=== PATIENT | female | born 1985 | race Two or more races ===

== ENCOUNTER 2020-04-23 19:28 | Emergency (ER) | payer MEDICAID ==
[~2020-04-23] VITALS: Ht 167.6 cm; Wt 88.5 kg
[2020-04-23 19:42] VITALS: BP 132/72
== END 2020-04-23 19:52 | disposition home or self-care (01) ==
LOC: ER 19:28
DX: O26.892 Other specified pregnancy related conditions, second trimester (principal); K43.9 Ventral hernia without obstruction or gangrene; Z3A.14 14 weeks gestation of pregnancy

== ENCOUNTER 2020-08-25 10:01 | Emergency (ER) | payer MEDICAID ==
[~2020-08-25] VITALS: Ht 167.6 cm; Wt 93.0 kg
[2020-08-25 10:03] VITALS: BP 114/80
[2020-08-25 11:26] LABS: Basophils # (auto) 0.1 10 ^3/uL (0-0.2); Basophils % (auto) 0.8 % (0.0-2.0); Eosinophils # (auto) 0.1 10 ^3/uL (0-0.8); Eosinophils % (auto) 1.1 % (0.0-7.0); Hematocrit 36.2 % (36.0-46.0); Hemoglobin 12.4 g/dL (12.2-16.2); Lymphocytes # (auto) 1.6 10 ^3/uL (0.4-5.4); Lymphocytes % (auto) 15.9 % (10.0-50.0); Mean Corpuscular Hemoglobin 29.7 pg (28.0-32.0); Mean Corpuscular Hgb Conc. 34.4 g/dL (32.0-36.0); Mean Corpuscular Volume 86.4 fL (80.0-100.0); Monocytes # (auto) 0.8 10 ^3/uL (0-1.3); Monocytes % (auto) 7.4 % (0.0-12.0); Neutrophils # (auto) 7.6 10 ^3/uL (1.6-8.6); Neutrophils % (auto) 74.8 % (37.0-80.0); Nucleated Red Blood Cells % 0.1 %; Platelet Count (auto) 230 10^3/uL (140-450); Red Blood Cells 4.19 10^6/uL (4.0-5.20); Red Cell Distribution Width 13.9 % (11.8-14.3); White Blood Cell 10.2 10^3/uL (4.4-10.8)
[2020-08-25 11:42] LABS: Albumin 3.1 g/dL (3.4-5.0); Calcium 8.5 mg/dL (8.5-10.1); Magnesium 1.9 mg/dL (1.6-2.6); Potassium 4.3 mmol/L (3.5-5.1)
[2020-08-25 11:46] LABS: BUN/Creatinine Ratio 23.9; Bilirubin, Total 0.3 mg/dL (0.2-1.0); Total Protein 6.8 g/dL (6.4-8.2)
== END 2020-08-25 12:42 | disposition left against medical advice (07) ==
LOC: ER 10:01
DX: O26.893 Other specified pregnancy related conditions, third trimester (principal); K46.9 Unspecified abdominal hernia without obstruction or gangrene; Z3A.32 32 weeks gestation of pregnancy
CPT/HCPCS: 36415; 76705; 80053; 83690; 83735; 85025